=== PATIENT | female | born 1985 | race Caucasian/White ===

== ENCOUNTER 2020-10-26 21:04 | Emergency (ER) | payer MEDICAID ==
[~2020-10-26] VITALS: Ht 170.2 cm; Wt 80.9 kg
[2020-10-26] MEDS ORDERED: ondansetron/PF 4mg/2ml inj IV STA (21:07)
--- NOTE | 2020-10-26 21:16 | NUR ---
BREAKING PRIMARY RN, WILL MONITOR
--- NOTE | 2020-10-26 21:31 | NUR ---
BREAKING PRIMARY RN, WILL CONT TO MONITOR
[2020-10-26 21:51] LABS: BASOPHILS # (AUTO) 0.1 X10'3 (0-0.2); BASOPHILS % (AUTO) 0.9 % (0-1); EOSINOPHILS # (AUTO) 0.2 X10'3 (0-0.9); EOSINOPHILS % (AUTO) 2.1 % (0-6); HEMOGLOBIN 13.2 g/dl (12.0-16.0); LYMPHOCYTES # (AUTO) 3.1 X10'3 (1.1-4.8); LYMPHOCYTES % (AUTO) 27.1 % (21-51); MEAN CORPUSCULAR HEMOGLOBIN 27.9 PG (27.0-31.0); MEAN CORPUSCULAR HGB CONC 32.2 g/dL (33.0-36.5); MEAN CORPUSCULAR VOLUME 86.8 FL (78-98); MEAN PLATELET VOLUME 8.9 FL (7.4-10.4); MONOCYTES # (AUTO) 0.9 X10'3 (0-0.9); MONOCYTES % (AUTO) 7.7 % (2-12); NEUTROPHILS # (AUTO) 7.1 X10'3 (1.8-7.7); NEUTROPHILS % (AUTO) 62.2 % (42-75); PLATELET COUNT 326 X10'3 (140-440); RED BLOOD COUNT 4.72 X10'6 (4.20-5.60); RED CELL DISTRIBUTION WIDTH 14.6 % (11.5-14.5); WHITE BLOOD COUNT 11.4 X10'3 (4.5-11.0)
[2020-10-26 21:51] LABS: CLARITY,URINE CLEAR (Clear); COLOR,URINE YELLOW (Yellow); GLUCOSE, URINE NEGATIVE (Neg); KETONES,URINE NEGATIVE (Neg); LEUKOCYTE ESTERASE ,URINE NEGATIVE (Neg); NITRITES, URINE NEGATIVE (Neg); OCCULT BLOOD,URINE MODERATE (Neg); PH,URINE 7.5 (4.8-8.0); PROTEIN,URINE NEGATIVE (Neg); URINE HCG NEGATIVE (NEG); UROBILINOGEN,URINE 0.2 E.U/dL (0.2-1.0)
--- NOTE | 2020-10-26 21:51 | NUR ---
IV access could not be obtained, US trained RN at bedside.
[2020-10-26 21:59] LABS: ALANINE AMINOTRANSFERASE 22 U/L (12-78); ALBUMIN 4.1 G/DL (3.4-5.0); ALKALINE PHOSPHATASE 81 IU/L (46-116); ANION GAP 9 (8-16); ASPARTATE AMINO TRANSFERASE 13 U/L (10-37); BILIRUBIN,TOTAL 0.2 MG/DL (0.1-1.0); BLOOD UREA NITROGEN 10 MG/DL (7-18); BUN/CREATININE RATIO 15.4 (6.6-38.0); CALCIUM 9.3 MG/DL (8.5-10.1); CHLORIDE 104 MMOL/L (99-107); CREATININE 0.65 MG/DL (0.40-0.90); GLUCOSE 80 MG/DL (70-104); LIPASE 116 U/L (73-393); SODIUM 140 MMOL/L (135-145); TOTAL CARBON DIOXIDE 26.9 MMOL/L (24-32); TOTAL PROTEIN 8.4 G/DL (6.4-8.2); eGFR > 90 ML/MIN
[2020-10-26] MEDS ORDERED: ondansetron 4mg rapidly disintigrating tab PO ONE (22:00)
[2020-10-26 22:49] LABS: UA COLLECTION TYPE CLN CATCH MIDSTREAM
[2020-10-26 22:50] LABS: BACTERIA,URINE NONE SEEN /HPF (Neg); RBC,URINE 0-2 /HPF (0-2); SQUAMOUS EPITHELIAL CELL,UR FEW /LPF (FEW); WBC,URINE NONE SEEN /HPF (0-4)
[2020-10-26] MEDS ORDERED: ketorolac tromethamine 15mg/ml inj. IV ONE (23:00)
[2020-10-26] MEDS ORDERED: ondansetron/PF 4mg/2ml inj IV ONE (23:15)
[2020-10-26] MEDS ORDERED: normal saline 1000ml 1,000 ML IV ONE (23:15)
[2020-10-26] MEDS ORDERED: iohexol 300mg/ml 100ml inj. ONE (23:21)
--- NOTE | 2020-10-27 00:11 | NUR ---
Per scientific technical writer, IV infiltrated during CT contrast administration. IV d/c'd by RN, cannula intact; warm compresses placed over site. aware.
--- NOTE | 2020-10-27 00:11 | NUR ---
Pt's IV extravisated during CT of abd/pel. Pt did not complain of pain until all 90cc of contrast was injected. I applied a hot compress and informed Jessie her nurse and Dr Nielsen.
[2020-10-27] MEDS ORDERED: oxyCODONE/APAP 5-325mg tablet PO ONE (00:45)
[2020-10-27] MEDS ORDERED: ondansetron 4mg rapidly disintigrating tab PO ONE (00:45)
--- NOTE | 2020-10-27 01:15 | NUR ---
Arm elevated, warm compress replaced. Warm blankets given to patient.
[2020-10-27] MEDS ORDERED: FLO0.4C PO (01:26)
[2020-10-27] MEDS ORDERED: IBUP-1986 PO (01:26)
[2020-10-27] MEDS ORDERED: OXYC-145 PO (01:26)
[2020-10-27] MEDS ORDERED: ONDA4TAB12 PO (01:26)
[2020-10-27] MEDS ORDERED: oxyCODONE IR 5mg (immed. release) tablet PO ONE (01:30)
[2020-10-27 02:14] VITALS: BP 129/80
== END 2020-10-27 02:15 | disposition home or self-care (01) ==
LOC: ER 21:04
DX: N20.0 Calculus of kidney (principal); F32.9 Major depressive disorder, single episode, unspecified; Z88.5 Allergy status to narcotic agent; Z79.899 Other long term (current) drug therapy
CPT/HCPCS: 36415; 74176; 76937; 80053; 81001; 81025; 83690; 85025; 96361; 96374; 96375; 96376; 99284; J1885; J2405; J7030; Q9967